=== PATIENT | female | born 1975 | race Caucasian/White ===

== ENCOUNTER 2018-07-15 08:26 | Day surgery (SDC) | payer OTHER ==
--- NOTE | 2018-07-15 07:55 | HP ---
DATE OF SURGERY: 07/15/2018 HISTORY OF PRESENT ILLNESS: The patient is a 43 year-old who had some heartburn, sick to the stomach, tridwight to belch has heartburn. She had a bilateral tubal in the past. She is in need of upper endoscopy for further evaluation of persistent reflux. PAST MEDICAL HISTORY: She had two blood clots in the past. She has been on Plavix which had been held recently. PAST SURGICAL HISTORY: section, EGD, tubal, thermal ablation, D&C. The patient did have prior endoscopy three or four years ago. She had some small area of Abreu's esophagus. MEDICATIONS: Lexapro, Chantix. ALLERGIES: BACTRIM, PYRIDIUM, ASPIRIN SENSITIVITY. FAMILY HISTORY: Iron infusion. Cancer. Hypertension. Diabetes. Some mental issues in the past. SOCIAL HISTORY: One pack per week smoker. Wine once a week. REVIEW OF SYSTEMS: Twelve systems reviewed per admission assessment. No chest pain or palpitations other systems negative or noncontributory as above and per preadmission questionnaire. PHYSICAL EXAMINATION: GENERAL: No acute distress. HEENT: Sclerae nonicteric. NECK: No JVD. CHEST: Clear to auscultation. CVS: Regular rate and rhythm. ABDOMEN: Soft. No peritoneal signs. Fullness, bulge abdominal wall. She has history of abdominal pain. She has CT scan pending for further evaluation to evaluate for diastasis versus hernia or other etiology. EXTREMITIES: No edema. NEURO: Alert, oriented, moving extremities symmetrically. No gross motor deficits noted. IMPRESSION: History of Abreu's esophagus, history of some reflux, heartburn. She is in need of follow up upper endoscopy possible biopsy for further evaluation. Risks and benefits explained in detail including but not limited to bleeding or infection, small risk of bowel injury or perforation possibly requiring open procedure, small risk of missed or nondiagnosis or incomplete exam possibly requiring barium swallow, other studies or procedures. She understands and agrees to the planned procedure and will proceed with EGD with possible biopsy as an outpatient.
[2018-07-15] MEDS ORDERED: DIPRIVAN 200 MG/20 ML IV ONE (08:27)
[2018-07-15] MEDS ORDERED: Lactated Ringers 1,000 ML IV SCH (09:00)
[2018-07-15 11:35] VITALS: BP 125/85; PULSE 65; O2SAT 96
--- NOTE | 2018-07-15 13:44 | OP ---
SURGERY DATE/TIME: 07/15/2018 1017 PREOPERATIVE DIAGNOSIS: History of Abreu's, heartburn, reflux, need for follow up upper endoscopy. POSTOPERATIVE DIAGNOSES: 1) Minimal to mild gastritis. 2) Distal esophagus seemed improved. No large fingerlets or salmon-pink tissue. Biopsy done to evaluate for early Abreu's. PROCEDURES: 1) EGD with cold biopsy of small bowel to evaluate for celiac sprue. 2) Cold biopsy of the antrum to evaluate for Helicobacter pylori. 3) Cold biopsy distal esophagus at the gastroesophageal junction to evaluate for short segment of gastroesophagitis versus Abreu's esophagus. 4) Random cold biopsies of mid esophagus to evaluate for eosinophilic esophagitis. SURGEON: Dr. Ulices Branch. ANESTHESIA: MAC. ESTIMATED BLOOD LOSS: Minimal. INDICATIONS: As noted above. Risks and benefits explained in detail and not limited to and consent obtained. DESCRIPTION OF PROCEDURE AND FINDINGS: The patient is taken to the endoscopy room. MAC anesthesia introduced. After official time out and no disagreement with planned procedure, a bite block positioned. Video gastroscope easily passed down the esophagus through the gastroesophageal junction about 39 cm through the patent pylorus to the junction of the second and third portion of the duodenum. There was a little bit of flattening of folds of duodenum. Given her symptom complaints cold biopsy taken to evaluate for celiac sprue. Good hemostasis noted. The scope pulled back in the stomach. There was some mild erythema, some minimal to mild gastritis. Cold biopsy taken to evaluate for Helicobacter pylori. There were no signs of any ulcers. No signs of any polyps, masses or any other mucosal lesions on retroflex of the scope. Gastroesophageal junction fairly snug against the scope. There was no evidence of any large hiatal hernia. Scope straightened, pulled back up to the gastroesophageal junction 39 cm. Z-line was fairly crisp. She had prior history of Abreu's in the past reportedly but she did not seem to have any long fingerlets here. Cold biopsy taken of the gastroesophageal junction to evaluate for early Abreu's versus distal esophagitis versus normal variation of gastroesophageal junction. Overall it looked pretty good compared to history in the past. The remainder of the esophagus fairly unremarkable. Given her symptom complaints some random cold biopsies were also taken in the esophagus to evaluate for eosinophilic esophagitis. Good hemostasis noted. The scope is withdrawn. The patient tolerated the procedure well. There were no immediate complications. Findings discussed with the family out in the waiting area. I will see her back in the office next week.
== END 2018-07-15 11:25 | disposition home or self-care (01) ==
LOC: SDC 08:26
PROVIDERS: ATTEND Surgery
DX: K29.70 Gastritis, unspecified, without bleeding (principal); R12 Heartburn; K21.9 Gastro-esophageal reflux disease without esophagitis; Z87.19 Personal history of other diseases of the digestive system
CPT/HCPCS: 87081; 88305; J2704